=== PATIENT | female | born 1950 | race Two or more races ===

== ENCOUNTER 2023-07-09 09:21 | Day surgery (SDC) | payer OTHER ==
[~2023-07-09] VITALS: Ht 167.6 cm; Wt 61.2 kg
[~2023-07-09 09:21] MED LIST: ATOR20TA PO; CALC-242 PO; COEN100C15 PO; FLUT1AER11 IN; MISC1TAB27 PO; MULT-927 PO; PANT40TA2 PO; [UNRECOGNIZED DRUG - CODE] PO
[2023-07-09] MEDS ORDERED: LIDOCAINE VISCOUS 2% 15ML UD ONE (10:22)
[2023-07-09] MEDS ORDERED: SODIUM CHLORIDE LOCK 10 ML ONE (10:22)
[2023-07-09 10:23] VITALS: O2SAT 100
[2023-07-09] MEDS ORDERED: diphenhdrAMINE HCL 50 MG/1 ML VL ONE (10:23)
[2023-07-09] MEDS: MIDAZOLAM HCL 5 MG/ML-1ML VIAL ONE ×2 (10:27→10:30)
[2023-07-09] MEDS: fentaNYL CITRATE 100 MCG/2 ML VL ONE ×2 (10:27→10:30)
[2023-07-09 10:37] VITALS: PULSE 78; RESP 11; TEMP 98.1; O2SAT 94
[2023-07-09 10:42] VITALS: RESP 10; O2SAT 95
[2023-07-09 10:47] VITALS: RESP 11; O2SAT 94
[2023-07-09 11:20] VITALS: BP 122/70; PULSE 100; RESP 15; O2SAT 100
== END 2023-07-09 11:20 | disposition home or self-care (01) ==
LOC: GI 09:21
PROVIDERS: ATTEND Internal Medicine Gastroenterology
DX: R12 Heartburn (principal); R09.A2 Foreign body sensation, throat; K29.50 Unspecified chronic gastritis without bleeding; E78.5 Hyperlipidemia, unspecified; M81.0 Age-related osteoporosis without current pathological fracture
CPT/HCPCS: 43239; 88305; 88342; J1200; J2250; J3010; J7030